=== PATIENT | female | born 1995 | race Caucasian/White ===

== ENCOUNTER 2023-10-19 13:58 | Emergency (ER) | payer SELFPAY ==
[~2023-10-19] VITALS: Ht 180.3 cm; Wt 158.0 kg
[2023-10-19 14:12] VITALS: BP 152/80
[2023-10-19] MEDS ORDERED: SODIUM CHLORIDE 0.9% 1,000 ML IV ONE (14:20)
[2023-10-19 14:27] LABS: BASO% 0.3 % (0-3); EOS% 5.3 % (0-8); HEMATOCRIT 39.7 % (37.0-47.0); IMMATURE GRANULOCYTES 0.2 % (0.0-5.0); LYMPH% 24.2 % (15-41); MEAN CORPUSCULAR HGB 27.6 pG CALC (26.0-32.0); MEAN CORPUSCULAR HGB CONC 32.7 g/dL CAL (32.0-36.0); MONO% 6.8 % (2-13); NEUT# 7.87 thou/uL (2.00-7.15); NEUT% 63.2 % (42-76); RED BLOOD COUNT 4.71 mill/uL (4.20-5.60); RED CELL DISTRI WIDTH 13.5 % (11.5-15.5)
[2023-10-19 14:29] LABS: MEAN CELL VOLUME 84.3 fL CALC (80.0-100.0)
[2023-10-19 15:01] VITALS: BP 123/78
[2023-10-19 15:19] LABS: ALBUMIN 4.3 g/dL (3.2-5.0); BILIRUBIN, TOTAL 0.7 mg/dL (0.02-1.3); CREATININE 0.5 mg/dL (0.5-1.0); POTASSIUM 4.1 mmol/l (3.5-5.1); TOTAL PROTEIN 7.8 g/dL (6.3-8.2)
[2023-10-19] MEDS ORDERED: KETOROLAC TROMETHAMINE 30 MG/ML SDV IV ONE (15:20)
[2023-10-19 15:31] VITALS: BP 129/92
[2023-10-19 15:46] LABS: URINE BILIRUBIN - DIPSTICK Negative (NEGATIVE); URINE BLOOD DIPSTICK Large (NEGATIVE); URINE GLUCOSE - DIPSTICK Negative (NEGATIVE); URINE KETONE Negative (NEGATIVE); URINE LEUK ESTERASE Negative (NEGATIVE); URINE NITRITE - DIPSTICK Negative (Negative); URINE PROTEIN - DIPSTICK Trace mg/dL (NEG-TRACE); URINE SPECIFIC GRAVITY 1.025; URINE UROBILINOGEN - DIPSTICK 0.2 E.U./dL (0.2)
[2023-10-19 15:51] LABS: URINE COLOR Yellow
[2023-10-19 16:00] VITALS: BP 141/92
[2023-10-19 16:03] LABS: URINE RBC >100 RBC/hpf (0-5); URINE SQUAMOUS EPITHELIAL CELL FEW EPI/hpf (0-FEW)
[2023-10-19] MEDS ORDERED: NAPROXEN500 MG PO (17:27)
[2023-10-19 17:32] VITALS: BP 141/92
== END 2023-10-19 17:37 | disposition home or self-care (01) | DRG 761 ==
LOC: ED 13:58
PROVIDERS: Nurse Practitioner
DX: N93.9 Abnormal uterine and vaginal bleeding, unspecified (principal); E28.2 Polycystic ovarian syndrome